=== PATIENT | male | born 1970 | race Caucasian/White ===

== ENCOUNTER → 2021-10-27 | Outpatient (REF) ==
--- NOTE | 2021-10-27 12:23 | REP ---
INDICATION: BACK AND NECK INJURY/ARTHRITIS. COMPARISON: None. TECHNIQUE: AP, lateral, swimmer's and open mouth views of the cervical spine FINDINGS: Moderate/early advanced multilevel degenerative changes include anterior osteophytosis including small chronic fractured osteophytes, endplate sclerosis and minimal disc space narrowing primarily involving C5-6, C6-7, and C7-T1. Alignment and lordosis maintained. No acute fracture/compression injury or subluxation. Open mouth view demonstrates normal C1-C2 articulation and odontoid process. IMPRESSION: Moderate/early advanced multilevel degenerative spondylosis. <Electronically signed by Sagar Whatley > 10/27/21 [id number]
--- NOTE | 2021-10-27 12:24 | REP ---
INDICATION: BACK AND NECK INJURY/ARTHRITIS COMPARISON: None. TECHNIQUE: AP, lateral, coned-down views of the lumbar spine. FINDINGS: Alignment and lordosis maintained without acute fracture/compression injury or subluxation. Moderate degenerative changes primarily involving L5-S1 includes endplate sclerosis, osteophytosis, disc space narrowing and facet arthropathy. IMPRESSION: Moderate degenerative changes primarily involving L5-S1 and to a lesser extent L3-4 and L4-5. <Electronically signed by Sagar Whatley > 10/27/21 [id number]
== END ==
LOC: M PLAIMG 11:02
PROVIDERS: ATTEND Internal Medicine
DX: M47.892 Other spondylosis, cervical region (principal); M54.50 Low back pain, unspecified